=== PATIENT | female | born 1980 | race Caucasian/White ===

== ENCOUNTER 2022-04-05 14:50 | Emergency (ER) | payer BC | END 2022-04-05 17:35 | disposition home or self-care (01) | LOC: JD.ED 14:50 | DX: S82.832A Other fracture of upper and lower end of left fibula, initial encounter for closed fracture (principal); S50.02XA Contusion of left elbow, initial encounter; E66.9 Obesity, unspecified; Z68.43 Body mass index [BMI] 50.0-59.9, adult; Z88.5 Allergy status to narcotic agent; W00.0XXA Fall on same level due to ice and snow, initial encounter | CPT/HCPCS: 73590-26-LT; 73590-LT; 73630-26-LT; 73630-LT; 99283 ==